=== PATIENT | male | born 1980 | race Caucasian/White ===

== ENCOUNTER 2019-11-18 10:11 | Emergency (ER) | payer SELFPAY ==
[~2019-11-18] VITALS: Ht 193 cm; Wt 151.5 kg
[~2019-11-18 10:11] MED LIST: Vistaril25 MG PO
[2019-11-18] MEDS ORDERED: IBUP800 PO (11:45)
== END 2019-11-18 11:56 | disposition home or self-care (01) ==
LOC: ER 10:11
DX: M70.821 Other soft tissue disorders related to use, overuse and pressure, right upper arm (principal)
CPT/HCPCS: 73080; 99283-25

== ENCOUNTER 2021-05-20 21:18 | Emergency (ER) | payer OTHER ==
[~2021-05-20] VITALS: Ht 193 cm; Wt 141.1 kg
[~2021-05-20 21:18] MED LIST changes: +IBUP800 PO
== END 2021-05-21 02:55 | disposition home or self-care (01) ==
LOC: ER 21:18
DX: K12.2 Cellulitis and abscess of mouth (principal); Z20.822 Contact with and (suspected) exposure to COVID-19
CPT/HCPCS: 86308; 87081; 87430; 96372; 99283; J1100; J1885

== ENCOUNTER 2021-07-28 20:09 | Emergency (ER) | payer OTHER ==
[~2021-07-28] VITALS: Ht 193 cm; Wt 142.9 kg
[2021-07-28 21:03] LABS: BASOPHILS ABSOLUTE AUTO 0.06 K/mm3 (0.00-0.23); BASOPHILS PERCENT AUTO 1 % (0-2); EOSINOPHILS ABSOLUTE AUTO 0.13 K/mm3 (0.00-0.68); EOSINOPHILS PERCENT AUTO 1 % (0-6); Hematocrit 46.8 % (37.0-53.0); Hemoglobin 15.9 g/dL (13.5-17.5); IMMATURE GRAN ABSOLUTE AUTO 0.03 K/mm3 (0.00-0.10); IMMATURE GRAN PERCENT AUTO 0 % (0-1); LYMPHOCYTES ABSOLUTE AUTO 2.39 K/mm3 (0.84-5.20); LYMPHOCYTES PERCENT AUTO 25 % (21-46); MONOCYTES PERCENT AUTO 4 % (4-13); Mean Corpuscular HGB 28.6 pg (26.0-34.0); Mean Corpuscular Volume 84 fL (80-100); Mean Platelet Volume 9.5 fL (9.1-12.4); NEUTROPHILS ABSOLUTE AUTO 6.42 K/mm3 (1.96-9.15); NEUTROPHILS PERCENT AUTO 68 % (41-73); Platelet Count 288 K/mm3 (150-400); RDW Standard Deviation 39.7 fL (35.1-46.3); Red Blood Cell Count 5.56 M/mm3 (4.30-5.90); White Blood Cell Count 9.43 K/mm3 (4.00-11.30)
[2021-07-28 21:09] LABS: Source, Urine Clean Catch
[2021-07-28 21:16] LABS: Appearance, Urine Clear (Clear); Bilirubin, Urine Neg (Neg); Blood, Urine Neg (Neg); Color, Urine Yellow (P-Yellow); Glucose Qualitative, Urine 4+ (Neg); Ketones, Urine 1+ (Neg); Leukocyte Esterase, Urine Neg (Neg); Nitrite, Urine Neg (Neg); Protein, Urine Neg (Neg); Urobilinogen, Urine NORM (Normal)
[2021-07-28 21:23] LABS: Alanine Aminotransfer (ALT/SGP 63 U/L (12-78); Albumin/Globulin Ratio 0.9 (0.8-1.8); Alk Phos 83 U/L (50-136); Anion Gap 10 mmol/L (6-16); Aspartate Aminotrans (AST/SGOT 29 U/L (12-37); Bilirubin, Total 0.3 mg/dL (0.1-1.0); Blood Urea Nitrogen 17 mg/dL (8-24); Bun/Creatinine Ratio 19.1 (12.0-20.0); CO2, Blood 25 mmol/L (21-32); Calcium, Blood 9.7 mg/dL (8.5-10.1); Chloride, Blood 103 mmol/L (98-108); Creatinine, Blood 0.89 mg/dL (0.60-1.20); Globulin, Blood 4.3 g/dL (2.2-4.0); Glomerular Filtration Rate >60 (60-); Glucose, Blood 338 mg/dL (70-99); Potassium, Blood 4.4 mmol/L (3.5-5.5); Sodium, Blood 138 mmol/L (136-145); Total Protein, Blood 8.3 g/dL (6.4-8.2)
[2021-07-28 21:42] LABS: Osmolality, Serum 307 mos/KG (275-300)
[2021-07-28] MEDS ORDERED: METF500 PO (21:50)
[2021-07-28] MEDS ORDERED: BUPR75 PO (21:51)
[2021-07-28] MEDS ORDERED: SERT50 PO (21:52)
== END 2021-07-29 00:57 | disposition home or self-care (01) ==
LOC: ER 20:09
PROVIDERS: Student in an Organized Health Care Education/Training Program
DX: E11.65 Type 2 diabetes mellitus with hyperglycemia (principal); E86.0 Dehydration; Z79.84 Long term (current) use of oral hypoglycemic drugs
CPT/HCPCS: 36415; 71045; 80053; 81003; 82947; 83605; 83930; 85025; 93005; 93010; 99284-25; J7030

== ENCOUNTER 2023-02-12 07:30 | Day surgery (SDC) | payer OTHER ==
[~2023-02-12] VITALS: Ht 193 cm; Wt 134.5 kg
[~2023-02-12 07:30] MED LIST changes: +BUPR75 PO; +METF500 PO; +SERT50 PO
[2023-02-12] MEDS ORDERED: ATOR40TA (07:51)
[2023-02-12] MEDS ORDERED: [UNRECOGNIZED DRUG - OTHER] PO (07:52)
--- NOTE | 2023-02-12 08:57 | NUR ---
02/12/23 0857 Terry Lal UNDER HEAD, RIGHT ARM TUCKED, LEFT ARM SECURED ON PADDED ARM BOARD, SHOULDER ROLL, SEAT BELT.
--- NOTE | 2023-02-12 10:42 | NUR ---
02/12/23 1042 Rossana Blanco MOM IN ROOM WITH PT. PT IS BECOMING MORE AWAKE AND IS DRINKING ICE WATER. PT STATES THAT HIS PAIN IS 5/10.
[2023-02-12 11:40] VITALS: BP 133/90
== END 2023-02-12 11:51 | disposition home or self-care (01) ==
LOC: ORSCSDS 07:30
PROVIDERS: Otolaryngology
PROC: 0CB7XZX Excision of Tongue, External Approach, Diagnostic (ICD-10-PCS; principal; 2023-02-12 08:45)
DX: K14.8 Other diseases of tongue (principal); E11.9 Type 2 diabetes mellitus without complications; K21.9 Gastro-esophageal reflux disease without esophagitis; Z79.84 Long term (current) use of oral hypoglycemic drugs; Z79.899 Other long term (current) drug therapy; E66.9 Obesity, unspecified; Z68.36 Body mass index [BMI] 36.0-36.9, adult
CPT/HCPCS: 82947; 88305; 88312; A9270; J1100; J2250; J2405; J2704; J3010